=== PATIENT | male | born 1970 | race African-American/Black ===

== ENCOUNTER 2019-09-15 16:15 | Emergency (ER) | payer OTHER ==
[~2019-09-15] VITALS: Ht 188 cm; Wt 86.2 kg
[2019-09-15] MEDS ORDERED: IBUPROFEN 800800 M1 PO (18:52)
[2019-09-15] MEDS ORDERED: CLARITIN-D 121 EAC1 PO (18:52)
[2019-09-15] MEDS ORDERED: TESSALON PERLE100 MG PO (18:52)
[2019-09-15] MEDS ORDERED: PROAIR HFA8.5 GM INH (19:07)
[2019-09-15 19:17] VITALS: BP 130/82
== END 2019-09-15 19:18 | disposition home or self-care (01) ==
LOC: ER 16:15
DX: J06.9 Acute upper respiratory infection, unspecified (principal); F17.210 Nicotine dependence, cigarettes, uncomplicated

== ENCOUNTER 2021-06-28 11:59 | Emergency (ER) | payer OTHER ==
[~2021-06-28] VITALS: Ht 185.4 cm; Wt 83.9 kg
[~2021-06-28 11:59] MED LIST: CLARITIN-D 121 EAC1 PO; IBUPROFEN 800800 M1 PO; PROAIR HFA8.5 GM INH; TESSALON PERLE100 MG PO
[2021-06-28 12:16] VITALS: BP 100/80
== END 2021-06-28 12:25 | disposition home or self-care (01) ==
LOC: ER 11:59
PROVIDERS: Nurse Practitioner Family
DX: Z20.822 Contact with and (suspected) exposure to COVID-19 (principal); F17.210 Nicotine dependence, cigarettes, uncomplicated; Z79.1 Long term (current) use of non-steroidal anti-inflammatories (NSAID); Z79.82 Long term (current) use of aspirin; Z79.899 Other long term (current) drug therapy